=== PATIENT | female | born 1985 | race Caucasian/White ===

== ENCOUNTER 2022-05-11 11:51 | Outpatient (CLI) | payer BC, OTHER, SELFPAY ==
[2022-05-12 22:50] LABS: Prolactin 5.7 ng/mL (2.8-29.2)
[2022-05-13 08:11] LABS: Cardiolipin Antibody IgA < 10 APL (<=11); Cardiolipin Antibody IgG < 10 GPL (<=14); Cardiolipin Antibody IgM < 10 MPL (<=12)
[2022-05-13 10:58] LABS: Anti-Mullerian Hormone 14.469 ng/mL (0.176-11.705)
== END 2022-05-11 11:52 | disposition home or self-care (01) ==
PROVIDERS: Visit Provider Physician Assistant
DX: N92.6 Irregular menstruation, unspecified (principal); N97.9 Female infertility, unspecified; F41.9 Anxiety disorder, unspecified; R45.89 Other symptoms and signs involving emotional state; Z13.1 Encounter for screening for diabetes mellitus
CPT/HCPCS: 83520; 84146; 84443; 86147

== ENCOUNTER 2022-06-25 15:57 | Outpatient (CLI) | payer BC, MEDICAID, SELFPAY | END 2022-06-25 15:58 | disposition home or self-care (01) | PROVIDERS: Visit Provider Physician Assistant | DX: O20.9 Hemorrhage in early pregnancy, unspecified (principal) | CPT/HCPCS: 84702; 86850; 86900; 86901 ==

== ENCOUNTER 2022-06-26 15:07 | Outpatient (CLI) | payer BC, MEDICAID, SELFPAY ==
--- NOTE | 2022-06-26 16:00 | CRLHL7_ITS ---
For Patients: As a result of the Cures Act, medical imaging exams and procedure reports are released immediately into your electronic medical record. You may view this report before your referring provider. If you have questions, please contact your health care provider. INDICATION: Early gestation with spotting prep TECHNIQUE: Ultrasound OB pelvis transabdominal and transvaginal. Real-time colón-scale imaging of the pelvis was performed. COMPARISON: None. FINDINGS: There is a single intrauterine gestation. The embryo demonstrates a regular cardiac rate measuring 118 beats per minute. The embryo`s crown rump length measurement of 0.5 cm corresponds to a gestational age of 6 weeks 1 day with a sonographic due date of 02/18/2023. There is a normal appearing yolk sac. There are no gross abnormalities noted within the embryo at this early state of development. The placenta has not yet developed. There is no sign of perigestational hemorrhage. The ovaries are of normal size. Corpus luteum cyst on the right. There are no suspicious fluid collections noted in the cul-de-sac. IMPRESSION: Single viable intrauterine with estimated gestational age of 6 weeks 1 day. No abnormalities seen. Dictated by Ye Espino MD @ 06/26/2022 7:20:30 PM (Electronically Signed)
== END 2022-06-26 15:08 | disposition home or self-care (01) ==
PROVIDERS: Visit Provider Physician Assistant
DX: O20.9 Hemorrhage in early pregnancy, unspecified (principal); Z3A.01 Less than 8 weeks gestation of pregnancy
CPT/HCPCS: 76817

== ENCOUNTER 2022-07-12 10:14 | Outpatient (CLI) | payer BC, MEDICAID, SELFPAY | END 2022-07-12 10:15 | disposition home or self-care (01) | LOC: NFLDREF 13:33 | PROVIDERS: Visit Provider Physician Assistant | DX: O20.9 Hemorrhage in early pregnancy, unspecified (principal) | CPT/HCPCS: 84702 ==

== ENCOUNTER 2022-07-16 16:04 | Outpatient (CLI) | payer BC, MEDICAID, SELFPAY | END 2022-07-16 16:05 | disposition home or self-care (01) | PROVIDERS: Visit Provider Physician Assistant | DX: O20.9 Hemorrhage in early pregnancy, unspecified (principal) | CPT/HCPCS: 84702 ==

== ENCOUNTER 2022-08-07 10:46 | Outpatient (CLI) | payer BC, MEDICAID, SELFPAY | END 2022-08-07 10:47 | disposition home or self-care (01) | PROVIDERS: Visit Provider Physician Assistant | DX: Z32.00 Encounter for pregnancy test, result unknown (principal) | CPT/HCPCS: 84702 ==

== ENCOUNTER 2022-08-09 11:01 | Outpatient (CLI) | payer BC, MEDICAID, SELFPAY ==
--- NOTE | 2022-08-09 11:00 | CRLHL7_ITS ---
For Patients: As a result of the Cures Act, medical imaging exams and procedure reports are released immediately into your electronic medical record. You may view this report before your referring provider. If you have questions, please contact your health care provider. INDICATION: VAGINAL BLEEDING 4 WEEKS AGO, PRESUMED SPONTANEOUS , POSITIVE HCG, ?RETAINED PRODUCTS VS NEW COMPARISON: Foot TECHNIQUE: Real-time colón-scale imaging of the pelvis was performed. FINDINGS: Sonographic imaging demonstrates a single living intrauterine gestation. The embryo demonstrates a regular cardiac rate measuring 163 beats per minute. The embryo`s crown-rump length measurement of 6.8 cm corresponds to a gestational age of 13 weeks 1 day with a sonographic due date of 02/13/2023. The yolk sac is not visualized. There are no gross abnormalities noted within the embryo at this early state of development. The gestational sac has a normal appearance. There is no evidence of a perigestational hemorrhage. The amount of fluid within the sac appears appropriate for gestational age. The cervix is closed. The myometrium appears normal. Corpus luteal right ovarian cyst. Left ovary not visualized. There are no suspicious fluid collections noted in the cul-de-sac. IMPRESSION: Normal intrauterine gestation. Gestational age calculated at 13 weeks 1 day with a sonographic due date of 02/13/2023. Dictated by Mikael Patel MD @ 08/09/2022 11:52:24 AM (Electronically Signed)
== END 2022-08-09 11:02 | disposition home or self-care (01) ==
LOC: US 11:02
PROVIDERS: Visit Provider Obstetrics & Gynecology
DX: N93.9 Abnormal uterine and vaginal bleeding, unspecified (principal); Z34.91 Encounter for supervision of normal pregnancy, unspecified, first trimester; Z32.00 Encounter for pregnancy test, result unknown
CPT/HCPCS: 76817; 86592; 86703; 86762; 86787; 86803; 86850; 86900; 86901; 87086; 87340; 87491; 87591

== ENCOUNTER 2022-10-10 14:33 | Outpatient (CLI) | payer BC, MEDICAID, SELFPAY | END 2022-10-10 14:34 | disposition home or self-care (01) | LOC: US 14:34 | PROVIDERS: Visit Provider Pediatrics Neonatal-Perinatal Medicine | DX: O09.512 Supervision of elderly primigravida, second trimester (principal); Z3A.22 22 weeks gestation of pregnancy | CPT/HCPCS: 76815; 76817 ==

== ENCOUNTER 2022-10-24 13:27 | Outpatient (CLI) | payer BC, MEDICAID, SELFPAY | END 2022-10-24 13:28 | disposition home or self-care (01) | LOC: OP CLINIC 13:27 | PROVIDERS: Visit Provider Pediatrics Neonatal-Perinatal Medicine | DX: O09.522 Supervision of elderly multigravida, second trimester (principal); Z3A.23 23 weeks gestation of pregnancy | CPT/HCPCS: 76811 ==

== ENCOUNTER 2022-11-19 10:58 | Outpatient (CLI) | payer BC, MEDICAID, SELFPAY ==
[2022-11-21 01:21] LABS: Rapid Plasma Reagin (RPR) Non Reactive (Non Reactive)
== END 2022-11-19 10:59 | disposition home or self-care (01) ==
LOC: NFLDREF 10:59
PROVIDERS: Obstetrics & Gynecology; Visit Provider Obstetrics & Gynecology
DX: Z34.90 Encounter for supervision of normal pregnancy, unspecified, unspecified trimester (principal)
CPT/HCPCS: 86592

== ENCOUNTER 2025-02-23 10:31 | Emergency (ER) | payer BC, MEDICAID, SELFPAY ==
--- OUTSIDE RECORDS SUMMARY | 2025-02-23 10:34 | XMS_ITS | Clinical Summary ---
Author Organization [facility] er Address [address] [place] [id number] Care Team Providers Care Software Publisher Name Role Phone FlorentinElvie bradshaw Kaden CHAVARRIA Primary Care Provider Allergies No known active allergies Medications * This document contains information received from the source organization and may not represent a complete record from that organization. acetaminophen (TYLENOL) 500 MG tablet Take 2 tablets (1,000 mg total) by mouth every 6 hours as needed 12/13/2022 Active ibuprofen (ADVIL) 600 MG tablet Take 1 tablet (600 mg total) by mouth every 6 hours as needed 12/13/2022 Active Active Problems Problem Noted Date Diagnosed Date Attention deficit hyperactivity disorder (ADHD) 11/27/2023 Assessment & Plan (11/27/2023 4:01 PM WEDDING PLANNER): Referral to [facility] for Diagnosis and treatment Will see patient in [place] after diagnosis and initial treatment Encounter for wellness examination in adult 10/30 Assessment & Plan (11/27/2023 3:59 PM WEDDING PLANNER): Patient declines covid and influenza vaccines Last Pap completed March 2023, Next Pap due March 2026 Cigarette nicotine dependence without complicati on 11/27/2023 Assessment & Plan (11/27/2023 4:00 PM WEDDING PLANNER): Tobacco use is newly identified. Smoking cessation counseling was provided. Tobacco use will be reassessed at the next regular appointment. Silvina declines smoking cessation at this time Immunizations Immunization Administration Dates Next Due DTP 06/15/1991, 7,1986,1985,1986 Influenza 6mo-64yrs Quad Pre servative Free IM 08/09/2022 MMR 12/13/2022,03/14/1998,07/20/1987 OPV 06/15/1991, 7,1986,1985 Td 03/14/1998 Tdap 11/28/2022 Varicella 01/16/2023 Family History Medical History Relation Comments Heart attack Maternal Grandfather Relation Status Comments Maternal Grandfather Social History Tobacco Use Types Packs/Day Years Used Date Smoking Tobacco: Every Day Cigarettes Smokeless Tobacco: Never Tobacco Cessation:Ready to Q uit: No; Counseling Given: No Alcohol Use Standard Drinks/Week Comments Yes 0 (1 standard drink = 0.6 oz pur e alcohol) occational Humiliation, Afraid, Rape, and Kick questionnair e Answer Date Recorded Within the last year, have y ou been afraid of your partner or ex-partner? No 11/27/2023 Within the last year, have y ou been humiliated or emotionally abused in other ways by your partner or ex-partner? No Within the last year, have y ou been kicked, hit, slapped, or otherwise physically hurt by your partner or ex-partner? No 11/27/2023 Within the last year, have y ou been raped or forced to have any kind of sexual activity by your partner or ex-partner? No 11/27/2023 Social Connection and Isolation Panel [NHANES] A nswer Date Recorded In a typical week, how many times do you talk on the phone with family, friends, or neighbors? Once a week 11/27/2023 How often do you get togethe r with friends or relatives? Never 11/27/2023 How often do you attend nondenominational or methodist serv ices? Never 11/27/2023 Do you belong to any clubs o r organizations such as nondenominational groups, unions, fraternal or athletic groups, or school groups? No 11/27/2023 How often do you attend meet ings of the clubs or organizations you belong to? Patient declined 11/27/2023 Are you , , di vorced, , never , or living with a partner? 11/27/2023 AUDIT-C Answer Date Recorded Q1: How often do you have a drink containing alc ohol? 2-3 times a week 11/27/2023 Q2: How many drinks containi ng alcohol do you have on a typical day when you are drinking? 3 or 4 11/27/2023 Q3: How often do you have si x or more drinks on one occasion? Monthly 11/27/2023 Overall Financial Resource Strain (CARDIA) Answe r Date Recorded How hard is it for you to pa y for the very basics like food, housing, medical care, and heating? Not very hard 11/27/2023 PHQ-2 Answer Date Recorded PHQ-9 Total Score 8 11/27/2023 [facility] - Occupational Stress Questionnaire Answer Date Recorded Do you feel stress - tense, restless, nervous, or anxious, or unable to sleep at night because your mind is troubled all the time - these days? Only a little 11/27/2023 Exercise Vital Sign Answer Date Recorde d On average, how many days pe r week do you engage in moderate to strenuous exercise (like a brisk walk)? 2 days 11/27/2023 On average, how many minutes do you engage in exercise at this level? 20 min 11/27/2023 Hunger Vital Sign Answer Date Recorded Within the past 12 months, y ou worried that your food would run out before you got the money to buy more. Never true 11/27/19 24 Within the past 12 months, t he food you bought just didn't last and you didn't have money to get more. Never true 11/27/2023 PRAPARE - Transportation Answer Date Re corded In the past 12 months, has l ack of transportation kept you from medical appointments or from getting medications? No 10/30 In the past 12 months, has l ack of transportation kept you from meetings, work, or from getting things needed for daily living? No 11/27/2023 Housing Stability Vital Sign Answer Nelson e Recorded In the last 12 months, was t here a time when you were not able to pay the mortgage or rent on time? No 11/27/2023 In the last 12 months, how many places have you lived? 1 11/27/2023 In the last 12 months, was t here a time when you did not have a steady place to sleep or slept in a residential (including now)? No 11/27/2023 Comments Unknown Sex and Gender Information Value Date Recorded Sex Assigned at Female 11/27/2023 6:34 PM WEDDING PLANNER Legal Sex Female 11:28 AM WEDDING PLANNER Gender Identity Female 11/27/2023 6:34 PM WEDDING PLANNER Sexual Orientation Straight 11/27/2023 6: 34 PM WEDDING PLANNER Last Filed Vital Signs Vital Sign Reading Time Taken Comments Blood Pressure 135/88 11/27/2023 3:19 PM WEDDING PLANNER Pulse 90 11/27/2023 3:19 PM WEDDING PLANNER Temperature 37.3 C (99.2 F) 11/27/2023 3:19 PM WEDDING PLANNER Respiratory Rate 16 11/27/2023 3:19 PM WEDDING PLANNER Oxygen Saturation 97% 11/27/2023 3:19 PM WEDDING PLANNER Inhaled Oxygen Concentration - - Weight 91.8 kg (202 lb 6.4 oz) 11/27/2023 3:19 P M WEDDING PLANNER Height 169 cm (5' 6.54) 11/27/2023 3:19 PM WEDDING PLANNER Body Mass Index 32.14 11/27/2023 3:19 PM WEDDING PLANNER Plan of Treatment Health Maintenance Due Date Last Done Comments Pneumococcal Vaccine: Pediatrics (0 to 5 Years) and At-Risk Patients (6 to 49 Years) (1 of 2 - PCV) 2005 COVID-19 Vaccine (1 - season) 2024 Influenza Vaccine (#1) 2024 08/09/2022 Pap Smear 03/28/2026 01/16/2023, 08/09/2022 Postp oned from 01/16/2026 (Patient Preference) DTaP,Tdap,and Td Vaccines (7 - Td or Tdap) 11/28/2032 11/28/2022, 03/14/1998, 06/15/1991, Additional history exists HPV Vaccines Aged Out No longer eligi ble based on patient's age to complete this topic Insurance [facility] Care Teams Software Publisher Relationship Specialty Start Date End Date Elvie De La Paz APRN [address] [place] [id number] PCP - General Family Medicine 11/27/23
--- OUTSIDE RECORDS SUMMARY | 2025-02-23 10:34 | XMS_ITS | Clinical Summary ---
Author Organization [facility] Address [address] [place] [address] Care Team Providers Care Teletype Installer Name Role Phone Pcp, No Primary Care Provider Unavailabl e Allergies No known active allergies Medications ORTHO TRI-CYCLEN (28) 0.18/0.215/0.25 MG-35 MCG(28) TAB None Entered 0 Active vit/iron fum/folic ac ( 1 + 1 ORAL) Take by mouth. Activ e buPROPion (WELLBUTRIN SR) 150 mg Sustained-Releas e tablet Take 150 mg by mouth two times daily. Active Ferrous Gluconate 324 mg (38 mg iron) tablet Take 324 mg by mouth once daily. 08/09/20 22 Active polyethylene glycol (MIRALAX; GLYCOLAX) 17 g packetIndication s:Constipation, unspecified constipation type Take 17 g by mouth or nasogastric tube once daily if needed for Constipation. 0 10/12/20 22 Active acetaminophen (TYLENOL EXTRA STRGTH) 500 mg tabletIndication s:S/P repeat low transverse Take 2 Tablets (1,000 mg) by mouth every 6 hours if needed for Pain. Max acetaminophen dose: 4000mg in 24 hrs. 30 Tablet 12/13/2022 9:47 AM ARTS ADMINISTRATOR OR MANAGER 12/13/19 23 Active ibuprofen (ADVIL; MOTRIN) 600 mg tabletIndication s:S/P repeat low transverse Take 1 Tablet (600 mg) by mouth every 6 hours if needed for Pain. Maximum of 3200 mg in 24 hours. 30 Tablet 12/13/2022 9:47 AM ARTS ADMINISTRATOR OR MANAGER 12/13/19 23 Active Breast Pump-Hospital Grade Electric-RentalI ndications:S/P repeat low transverse Electronic breast pump for home use. Gestational age at delivery: 30 weeks. Reason for need: Prolonged maternal separation. Length of need: 3 months. 1 Each 12/13/19 Active oxyCODONE (ROXICODONE) 5 mg immediate release tabletIndication s:S/P repeat low transverse Take 1 Tablet (5 mg) by mouth every 4 hours if needed for Pain (for moderate to severe pain not controlled with ibuprofen and acetaminophen.). 20 Tablet 12/13/19 Active Active Problems Problem Noted Date Diagnosed Date S/P repeat low transverse 12/10/2022 premature rupture of membranes (PPROM) with unknown onset of labor 11/26/2022 Hx of section 11/26/2022 Overview (11/26/2022): x2 Anxiety 11/26/2022 complicated by tobacco use in third tr imester 11/26/2022 Multigravida of advanced maternal age in third t rimester 11/26/2022 Cervical cerclage suture present 10/11/2022 Cervical insufficiency durin g in second trimester, antepartum 10/10/2022 Allergic rhinitis, cause unspecified 02/17/2007 Abnormal Papanicolaou smear of vagina and vagina l HPV 02/17/2007 Overview (02/17/2007): colposcopy Cervical insufficiency durin g in third trimester, antepartum Immunizations Immunization Administration Dates Next Due Influenza, IIV4 08/09/2022 MMR 12/13/2022 Tdap 11/28/2022 Family History Medical History Relation Name Comments Heart Disease Maternal Grandfather o f [place] age 57 Hypertension Maternal Grandmother Other Paternal Grandfather romario ons /alzheimers Relation Name Status Comments Maternal Grandfather Maternal Grandmother Paternal Grandfather Social History Tobacco Use Types Packs/Day Years Used Date Smoking Tobacco: Every Day Cigarettes Tobacco Cessation:Ready to Q uit: Not Asked; Counseling Given: Not Answered Alcohol Use Standard Drinks/Week Comments Not Currently 0 (1 standard drink = 0.6 oz pur e alcohol) Social Connections Answer Date Recorded Frequency of Communication with Friends and Fami ly Not on file 02/05/2023 Comments No Sex and Gender Information Value Date Recorded Sex Assigned at Not on file Legal Sex Female 7:09 AM ARTS ADMINISTRATOR OR MANAGER Gender Identity Not on file Sexual Orientation Not on file Obstetrics History Para Term AB IAB SAB Ectopic Multiple Livin g Live Births 7 3 2 1 4 0 0 0 0 3 3 Date Outcome GA Total Labor Labor/2nd/3rd Weight Sex Type Anes PTL Ayesha A1 A5 Name Clin AB SPONTA NEOUS AB SPONTA NEOUS AB SPONTA NEOUS AB ELECTI VE AB 2011 Term 42w 0d 4.34 kg (9 lb 9 oz) M C-Sect ion Livin g Comments:arrest of dennise cent 2013 Term 41w 0d 3.4 kg (7 lb 8 oz) M C-Sect ion Livin g 2022 30w 0d 1.64 kg (3 lb 10 oz) F C-Sect ion Spinal Livin g 7 9 TURNA ALCIDES ,BG ASHLI SENIA Call, Franck López MD Complications:None Delivery Location:Hospital ( [address]) Last Filed Vital Signs Vital Sign Reading Time Taken Comments Blood Pressure 114/71 12/13/2022 1:10 PM ARTS ADMINISTRATOR OR MANAGER Pulse 82 12/13/2022 1:10 PM ARTS ADMINISTRATOR OR MANAGER Temperature 36.7 C (98.1 F) 12/13/2022 9:00 AM ARTS ADMINISTRATOR OR MANAGER Respiratory Rate 16 12/13/2022 9:00 AM ARTS ADMINISTRATOR OR MANAGER Oxygen Saturation 98% 12/12/2022 11:14 PM ARTS ADMINISTRATOR OR MANAGER Inhaled Oxygen Concentration - - Weight 89.2 kg (196 lb 9.6 oz) 12/04/2022 8:35 A M ARTS ADMINISTRATOR OR MANAGER Height 167.6 cm (5' 6) 10/10/2022 6:11 PM ARTS ADMINISTRATOR OR MANAGER Body Mass Index 31.73 10/10/2022 6:11 PM ARTS ADMINISTRATOR OR MANAGER Plan of Treatment Health Maintenance Due Date Last Done Comments Depression screening for age 12+ 1998 BMI (ht and wt on same day) for age 18+ 01/27/2004 Hepatitis C screening for age 18-79 01/27/2004 COVID-19 vaccine series ( season) 2024 Influenza Vaccine (Season Ended) 2025 08/09/2022 Pap test for age 21-65 01/16/2026 3, 01/16/2023, 08/09/2022, Additional history exists Tetanus booster 11/28/2032 11/28/2022 HIV for age 15-65 Completed 08/09/2022 Tdap Completed 11/28/2022 Pneumococcal series for age 6-49 Aged Out No longer eligible based on patient's age to complete this topic Procedures Procedure Name Priority Date/Time Associated Diagnosis Comments HPV HIGH RISK Routine 01/16/2023 12:00 PM CDT HIV EXTERNAL Routine 08/09/2022 from Last 3 Months or Most Recently Relevant to Health Maintenance Results * HPV HIGH RISK (01/16/2023 12:00 PM CDT) TYPE 16 Negative Negative 01/21/2023 10:52 AM CDT [facility] TYPE 18 Negative Negative 01/21/2023 10:52 AM CDT [facility] OTHER HIGH RISK TYPES Negative Negative 01/21/2023 10:52 AM CDT [facility] Other (Cervical) 01/16/2023 12:00 PM CDT 01/18/2023 10:23 AM CDT Narrative [facility] - 01/21/2023 10:52 AM CDT HPV types 16, 18, 31, 33, 35, 39, 45, 51, 52, 56, 58, 59, 66 and 68 DNA were undetectable or below the pre-set threshold. Methodology: Domenic Meghna 4800 HPV Test us Marleny Lopes [employer] Final Res ult [facility] [address] [place] [address], * HIV EXTERNAL (08/09/2022) EXTERNAL HIV Negative [facility] Blood BLOOD SPECIMEN / Unknown Glenda Vences DO LABORATORY Final Resul t [facility] [address] [place] [address] from Last 3 Months or Most Recently Relevant to Health Maintenance Insurance [facility] Advance Directives * Full Code (Latest Code Status on File) Date Activated Date Inactivated Comments 11/26/2022 8:56 PM 12/13/2022 4:30 PM Question Answer Comments Code Status Discussion: Other * Full Code Date Activated Date Inactivated Comments 10/10/2022 6:42 PM 10/12/2022 1:11 PM Question Answer Comments Code Status Discussion: Reviewed Preferences Care Teams Teletype Installer Relationship Specialty Start Date End Date Pcp, No . PCP - General 07/08/12
[2025-02-23 10:36] VITALS: BP 128/88; PULSE 74; RESP 20; TEMP 36.2; O2SAT 100
--- NOTE | 2025-02-23 11:17 | CRLHL7_ITS ---
For Patients: As a result of the Century Cures Act, medical imaging exams and procedure reports are released immediately into your electronic medical record. You may view this report before your referring provider. If you have questions, please contact your health care provider. Indication: Chest/back pain Technique: PA and lateral views of the chest. Comparison: 05/26/2021. Findings: Normal cardiomediastinal silhouette. No focal consolidation, pleural effusions, or visualized pneumothorax. Mild linear left lower lobe opacity. Mild degenerative changes of the visualized spine. Impression: No acute cardiopulmonary disease. Mild linear left lower lobe opacity is compatible with atelectasis or scarring. Dictated by Angel Acosta MD @ 02/23/2025 11:38:36 AM (Electronically Signed)
--- NOTE | 2025-02-23 11:18 | ED.GENADULT ---
HPI - General Adult General Chief complaint: Chest Pain Stated complaint: back pain/chest pain Time Seen by Provider: 02/23/25 10:49 History of Present Illness HPI narrative: This 40-year-old female comes in reporting onset of mid back pain when she rolled over in bed at about 1:00 a.m. the night before last. Since then she also has some pain in her chest that is related to this back pain. She states that the pain is worse with certain movements and when taking a deep breath. She does not report any injury event or strenuous activity recently. She states that she has good exercise tolerance. She denies having any nausea, vomiting, lightheadedness, shortness of breath, diaphoresis, or exercise intolerance. As for risk factors she is a smoker but does not have any other major risk factors. Related Data Previous Rx's ?Medication ?Instructions ?Recorded cyclobenzaprine 10 mg tablet 10 mg PO TID #15 tabs 02/23/25 ketorolac 10 mg tablet 10 mg PO TID 5 days #15 tabs 02/23/25 methylprednisolone 4 mg tablets in See Rx Instructions PO .COMPLEX 02/23/25 a dose pack (Medrol (Ivan)) #21 ea Allergies Allergy/AdvReac Type Severity Reaction Status Date / Time No Known Allergies Allergy Verified 02/23/25 10:36 Review of Systems Status of ROS: Reports: 10 or more systems reviewed and unremarkable except as noted in History and below Narrative: Constitutional: No fevers, no weight gain or loss. Eyes: No discharge. No vision changes. HENT: No congestion, no sore throat, no ear pain. Cardiovascular: No palpitations. Respiratory: No shortness of breath, no wheezes, no cough. Gastrointestinal: No abdominal pain, no vomiting, no diarrhea. Genitourinary: No dysuria, no hematuria. Musculoskeletal: Normal range of motion. Skin: No rashes, no pruritis. Neurological: No dizziness, weakness, sensory change, speech change. Endo/Heme/Allergies: No bruising or bleeding. No polydipsia. Pysch: no suicidality, no anxiety, no insomnia. All other systems reviewed and are negative. [facility] Medical History Anemia affecting Anxiety Encounter for smoking cessation counseling High risk due to history of previous obstetrical problem in third trimester History of recurrent miscarriages Costa cerclage present (10/11/22) Surgical History History of Family History Mother Diabetes High blood pressure High cholesterol Maternal Grandfather Stroke High blood pressure Coronary artery disease High cholesterol Maternal Grandmother High blood pressure High cholesterol Social History Narrative: Cis-gender, heterosexual woman Relationship status: Monogamous relationship with male partner. Partner: [name] Education: [] Occupation: [] Tobacco: Current smoker E-cigarettes: [] Alcohol: History of alcohol abuse. Denies using alcohol during . Illicit/recreational drugs: Denies Safety concerns at home or work: No Dietary restriction(s): None Exercise: No Chemical/radiation exposure: No Pets: [] Smoking Status: Current some day smoker How often do you have a drink containing alcohol: 4 or more times a week AUDIT-C Alcohol total score: 4 Non-prescribed substance use: denies use Exam Narrative: Exam Narrative: Constitutional: Well-developed, well-nourished, no acute distress. HEENT: Normocephalic, atraumatic. Neck: Normal range of motion. Nontender. Supple. Heart: Regular. No murmurs. Normal rate. Intact distal pulses. Lungs: Clear to auscultation. No wheezes, rhonchi, or rales. Chest: Chest discomfort is distinctly reproducible when making certain movements and with taking deep breath. Abdomen: Normal bowel sounds. Nontender. No rebound tenderness. Genitalia: Deferred. Back: No midline tenderness. Normal range of motion. Extremities: Normal range of motion. No injury. Skin: Intact. No rash. Warm. No erythema or pallor. Neurologic: No altered sensation. No weakness. Alert and oriented. Psychiatric: No suicidality. No anxiety or depression. No insomnia. Nursing notes and vitals signs are reviewed. Const: Vital Signs, click to edit/add: Vital Signs - 24 hr 02/23/25 10:36 02/23/25 12:12 Temperature 97.1 F L 97.2 F L Pulse Rate [Pulse Oximeter] 74 55 L Respiratory Rate 20 18 Blood Pressure [Ri ght Upper Arm] 128/88 126/91 H Pulse Oximetry 100 100 Oxygen Delivery Me thod Room Air Room Air Course Vital Signs Vital signs: Initial Vital Signs Temperature 97.1 F L 02/23/25 10:36 Temperature Source Temporal Artery Scan 02/23/25 10:36 Pulse Rate 74 02/23/25 10:36 Respiratory Rate 20 02/23/25 10:36 Blood Pressure 128/88 02/23/25 10:36 Blood Pressure Mean 101 02/23/25 10:36 Blood Pressure Position Sitting 02/23/25 10:36 Pulse Oximetry 100 02/23/25 10:36 Oxygen Delivery Method Room Air 02/23/25 10:36 Vital Signs Temperature 97.1 F L 02/23/25 10:36 Pulse Rate 74 02/23/25 10:36 Respiratory Rate 20 02/23/25 10:36 Blood Pressure 128/88 02/23/25 10:36 Pulse Oximetry 100 02/23/25 10:36 Oxygen Delivery Method Room Air 02/23/25 10:36 Temperature 97.2 F L 02/23/25 12:12 Pulse Rate 55 L 02/23/25 12:12 Respiratory Rate 18 02/23/25 12:12 Blood Pressure 126/91 H 02/23/25 12:12 Pulse Oximetry 100 02/23/25 12:12 Oxygen Delivery Method Room Air 02/23/25 12:12 Medical Decision Making MDM Narrative Medical decision making narrative: This patient comes in reporting mid back pain that now radiates around her chest. This pain is distinctly reproducible with deep breath and certain movements. I did obtain a chest x-ray and labs and these all returned with normal findings. The patient is reassured with these results and is okay to be discharged home. I did provide prescription for Medrol Dosepak, Toradol, and Flexeril. Lab Data Labs: Lab Results 02/23/25 02/23/25 Range/Units 11:17 11:57 WBC 9.94 (4.50-11.00) K/uL RBC 4.02 (4.00-5.20) m/uL Hgb 11.6 L (12.0-16.0) gm/dL Hct 34.8 (33.0-51.0) % MCV 87 (80-100) fL MCH 29 (26-34) pg MCHC 33 (32-36) gm/dL RDW Coeff of Nancy 13.0 (11.5-15.5) % Plt Count 340 (140-440) K/uL Neut % (Auto) 60.0 (42.0-72.0) % Lymph % (Auto) 31.8 (20-44) % [place] % (Auto) 6.4 (0.0-11.0) % Eos % (Auto) 1.3 (0.0-7.0) % Baso % (Auto) 0.4 (0.0-3.0) % Neut # (Auto) 5.96 (1.7-7.0) K/uL Lymph # (Auto) 3.16 H (0.90-2.90) K/uL [place] # (Auto) 0.60 (0.00-0.90) K/UL Eos # (Auto) 0.13 (0.00-0.50) K/uL Baso # (Auto) 0.04 (0.00-0.30) K/uL Abs Immat Gran (auto) 0.01 (0.00-0.30) K/uL Imm/Tot Granulo (auto) 0.1 % Sodium 138 (135-149) mmol/L Potassium 4.3 (3.6-5.1) mmol/L Chloride 107 (96-114) mmol/L Carbon Dioxide 22 (20-32) mmol/L Anion Gap 9 (7-15) mEq/L BUN 9 (5-24) mg/dL Creatinine 0.6 (0.5-1.5) mg/dL Estimated Creat Clear 117.85 Estimated GFR 117 ml/min Glucose 93 (60-115) mg/dL Calcium 9.3 (8.4-10.6) mg/dL POC Troponin I 0.00 L (0.01-0.04) ng/ml Imaging Data Chest x-ray: Radiologist's impression: No acute cardiopulmonary disease. Mild linear left lower lobe opacity is compatible with atelectasis or scarring. ECG Data Attestation: I personally reviewed and interpreted this ECG as follows: Interpretation: Normal sinus rhythm. Rate is 61 beats per minute. There are no ST or T-wave abnormalities. Discharge Plan Discharge Clinical Impression: Acute chest wall pain Patient Disposition: Home, Self-Care Condition: Stable Additional Instructions: Take medication as needed and directed. Increase activity as tolerated. Follow up with MD or return if worsening. Prescriptions: New cyclobenzaprine 10 mg tablet 10 mg PO TID Qty: 15 0RF ketorolac 10 mg tablet 10 mg PO TID 5 Days Qty: 15 0RF methylprednisolone [Medrol (Ivan)] 4 mg tablets,dose pack See Rx Instructions .ROUTE .COMPLEX Qty: 21 0RF Rx Instructions: orally per package directions Follow Up/Referrals: Provider,Not a Local [Primary Care Provider] - Stand Alone Forms: [employer] Info Instructions
--- OUTSIDE RECORDS SUMMARY | 2025-02-23 11:31 | XMS_ITS | Clinical Summary ---
Author Organization [facility] Address [address] [place] [id number] Care Team Providers Care Lumber Trimmer Name Role Phone Pcp, No Primary Care [...] 24 hrs. 30 Tablet 12/13/2022 9:47 AM SEARCH MARKETING COORDINATOR 12/13/19 23 Active ibuprofen (ADVIL; MOTRIN) 600 mg tabletIndication s:S/P repeat low transverse Take 1 Tablet (600 mg) by mouth every 6 hours if needed for Pain. Maximum of 3200 mg in 24 hours. 30 Tablet 12/13/2022 9:47 AM SEARCH MARKETING COORDINATOR 12/13/19 23 Active Breast Pump-Hospital Grade Electric-RentalI [...] Comments Heart Disease Maternal Grandfather o f [place] age 57 Hypertension Maternal Grandmother Other Paternal [...] on file Legal Sex Female 7:09 AM SEARCH MARKETING COORDINATOR Gender Identity Not on file Sexual Orientation [...] Franck López MD Complications:None Delivery Location:Hospital ( [address]) Last Filed Vital Signs Vital Sign Reading Time Taken Comments Blood Pressure 114/71 12/13/2022 1:10 PM SEARCH MARKETING COORDINATOR Pulse 82 12/13/2022 1:10 PM SEARCH MARKETING COORDINATOR Temperature 36.7 C (98.1 F) 12/13/2022 9:00 AM SEARCH MARKETING COORDINATOR Respiratory Rate 16 12/13/2022 9:00 AM SEARCH MARKETING COORDINATOR Oxygen Saturation 98% 12/12/2022 11:14 PM SEARCH MARKETING COORDINATOR Inhaled Oxygen Concentration - - Weight 89.2 kg (196 lb 9.6 oz) 12/04/2022 8:35 A M SEARCH MARKETING COORDINATOR Height 167.6 cm (5' 6) 10/10/2022 6:11 PM SEARCH MARKETING COORDINATOR Body Mass Index 31.73 10/10/2022 6:11 PM SEARCH MARKETING COORDINATOR Plan of Treatment Health Maintenance Due Date [...] 16 Negative Negative 01/21/2023 10:52 AM CDT [facility] TYPE 18 Negative Negative 01/21/2023 10:52 AM CDT [facility] TRA [facility]OR[facility] OTHER HIGH RISK TYPES Negative Negative 01/21/2023 10:52 AM CDT [facility] Other (Cervical) 01/16/2023 12:00 PM CDT 01/18/2023 10:23 AM CDT Narrative [facility] - 01/21/2023 10:52 AM CDT HPV types 16, 18, 31, 33, 35, 39, 45, 51, 52, 56, 58, 59, 66 and 68 DNA were undetectable or below the pre-set threshold. Methodology: Domenic Meghna 4800 HPV Test us Marleny Lopes SPRING UP SUPERVISOR MICROBIOLOGY Final Res ult [facility] [address] [place] [address], * HIV EXTERNAL (08/09/2022) EXTERNAL HIV Negative [facility] Blood BLOOD SPECIMEN / Unknown Glenda Vences DO LABORATORY Final Resul t [facility] [address] [place] [address] from Last 3 Months or Most Recently Relevant to Health Maintenance Insurance [facility] [employer] [employer] [facility] Advance Directives * Full Code (Latest Code Status on File) Date Activated Date Inactivated Comments 11/26/2022 8:56 PM 12/13/2022 4:30 PM Question Answer Comments Code Status Discussion: Other * Full Code Date Activated Date Inactivated Comments 10/10/2022 6:42 PM 10/12/2022 1:11 PM Question Answer Comments Code Status Discussion: Reviewed Preferences Care Teams Lumber Trimmer Relationship Specialty Start Date End Date Pcp, No . PCP - General 07/08/12
--- OUTSIDE RECORDS SUMMARY | 2025-02-23 11:32 | XMS_ITS | Clinical Summary ---
Author Organization [facility] er Address [address] [place] [id number] Care Team Providers Care Physical Laboratory Assistant Name Role Phone FlorentinElvie bradshaw Kaden CHAVARRIA [...] 11/27/2023 Assessment & Plan (11/27/2023 4:01 PM CATALYST OPERATOR): Referral to [facility] for Diagnosis and treatment Will see patient in [place] after diagnosis and initial treatment Encounter for wellness examination in adult 10/30 Assessment & Plan (11/27/2023 3:59 PM CATALYST OPERATOR): Patient declines covid and influenza vaccines Last Pap completed March 2023, Next Pap due March 2026 Cigarette nicotine dependence without complicati on 11/27/2023 Assessment & Plan (11/27/2023 4:00 PM CATALYST OPERATOR): Tobacco use is newly identified. Smoking cessation [...] Never 11/27/2023 How often do you attend hinduism or mandaen serv ices? Never 11/27/2023 Do you belong to any clubs o r organizations such as hinduism groups, unions, fraternal or athletic groups, or [...] Date Recorded PHQ-9 Total Score 8 11/27/2023 [facility] Occupat ional [facility] - Occupational Stress Questionnaire Answer Date Recorded [...] place to sleep or slept in a half-way (including now)? No 11/27/2023 Comments Unknown Sex and Gender Information Value Date Recorded Sex Assigned at Female 11/27/2023 6:34 PM CATALYST OPERATOR Legal Sex Female 11:28 AM CATALYST OPERATOR Gender Identity Female 11/27/2023 6:34 PM CATALYST OPERATOR Sexual Orientation Straight 11/27/2023 6: 34 PM CATALYST OPERATOR Last Filed Vital Signs Vital Sign Reading Time Taken Comments Blood Pressure 135/88 11/27/2023 3:19 PM CATALYST OPERATOR Pulse 90 11/27/2023 3:19 PM CATALYST OPERATOR Temperature 37.3 C (99.2 F) 11/27/2023 3:19 PM CATALYST OPERATOR Respiratory Rate 16 11/27/2023 3:19 PM CATALYST OPERATOR Oxygen Saturation 97% 11/27/2023 3:19 PM CATALYST OPERATOR Inhaled Oxygen Concentration - - Weight 91.8 kg (202 lb 6.4 oz) 11/27/2023 3:19 P M CATALYST OPERATOR Height 169 cm (5' 6.54) 11/27/2023 3:19 PM CATALYST OPERATOR Body Mass Index 32.14 11/27/2023 3:19 PM CATALYST OPERATOR Plan of Treatment Health Maintenance Due Date [...] patient's age to complete this topic Insurance [facility] [employer] [facility] Care Teams Physical Laboratory Assistant Relationship Specialty Start Date End Date Elvie De La Paz APRN [address] [place] [id number] PCP - General Family Medicine 11/27/23
[2025-02-23 12:12] VITALS: BP 126/91; PULSE 55; RESP 18; TEMP 36.2; O2SAT 100
[2025-02-23 12:12] LABS: Basophils Absolute Auto 0.04 K/uL (0.00-0.30); Basophils Percent Auto 0.4 % (0.0-3.0); Eosinophils Absolute Auto 0.13 K/uL (0.00-0.50); Eosinophils Percent Auto 1.3 % (0.0-7.0); Hematocrit* 34.8 % (33.0-51.0); Hemoglobin* 11.6 gm/dL (12.0-16.0); Immature Granulocytes Abs Auto 0.01 K/uL (0.00-0.30); Immature Granulocytes Pct Auto 0.1 %; Lymphocytes Absolute Auto 3.16 K/uL (0.90-2.90); Lymphocytes Percent Auto 31.8 % (20-44); Mean Corpuscular HGB Conc 33 gm/dL (32-36); Mean Corpuscular Hemoglobin 29 pg (26-34); Mean Corpuscular Volume 87 fL (80-100); Monocytes Percent Auto 6.4 % (0.0-11.0); Neutrophils Absolute Auto 5.96 K/uL (1.7-7.0); Platelet Count* 340 K/uL (140-440); Red Blood Count* 4.02 m/uL (4.00-5.20); White Blood Count* 9.94 K/uL (4.50-11.00)
[2025-02-23 12:18] LABS: Chloride* 107 mmol/L (96-114); Potassium* 4.3 mmol/L (3.6-5.1); Sodium* 138 mmol/L (135-149)
[2025-02-23 12:20] LABS: Slide Review Reflex No
[2025-02-23 12:21] LABS: Blood Urea Nitrogen* 9 mg/dL (5-24); Calcium* 9.3 mg/dL (8.4-10.6); Carbon Dioxide* 22 mmol/L (20-32); Creatinine* 0.6 mg/dL (0.5-1.5); Est. Creatinine Clearance* 117.85; Estimated Glomerular Filt Rate 117 ml/min; Glucose* 93 mg/dL (60-115)
[2025-02-23 12:22] LABS: Anion Gap 9 mEq/L (7-15)
== END 2025-02-23 12:54 | disposition home or self-care (01) ==
PROVIDERS: Emergency Provider Emergency Medicine Emergency Medical Services
DX: R07.89 Other chest pain (principal)
CPT/HCPCS: 36415; 71046; 80048; 84484; 85025; 93005; 99284